=== PATIENT | male | born 1950 | race Caucasian/White ===

== ENCOUNTER 2017-07-27 12:41 | Emergency (ER) | payer MEDICARE, OTHER ==
[2017-07-27 12:51] VITALS: BP 158/66
[2017-07-27] MEDS ORDERED: ASPirin 81 mg TAB PO ONE (13:00)
[2017-07-27] MEDS ORDERED: predniSONE 20 MG TAB PO ONE (13:00)
[2017-07-27 13:49] LABS: Basophils # (auto) 0.1 uL; Basophils % (auto) 1.1 % (0.0-2.0); Eosinophils # (auto) 0.5 uL; Eosinophils % (auto) 4.5 % (0.0-7.0); Hematocrit 40.5 % (41.0-53.0); Hemoglobin 13.6 g/dL (13.5-17.5); Lymphocytes % (auto) 19.1 % (10.0-50.0); Mean Corpuscular Hemoglobin 29.4 pg (28.0-32.0); Mean Corpuscular Hgb Conc. 33.6 g/dL (32.0-36.0); Mean Corpuscular Volume 87.6 fL (80.0-100.0); Neutrophils # (auto) 6.7 uL; Neutrophils % (auto) 65.3 % (37.0-80.0); Platelet Count (auto) 355 10^3/uL (140-450); Red Blood Cells 4.63 10^6/uL (4.5-5.90); Red Cell Distribution Width 13.7 % (11.8-14.3); White Blood Cell 10.3 10^3/uL (4.4-10.8)
[2017-07-27 14:16] LABS: Alanine Aminotransferase 17 U/L (16-61); Albumin 3.7 g/dL (3.4-5.0); Alkaline Phosphatase 75 U/L (45-117); Anion Gap 10 (5-15); Aspartate Aminotransferase 11 U/L (15-37); BUN/Creatinine Ratio 17.3; Bilirubin, Total 0.4 mg/dL (0.2-1.0); Blood Urea Nitrogen 19 mg/dL (7-18); Calcium 8.9 mg/dL (8.5-10.1); Carbon Dioxide 22 mmol/L (21-32); Chloride 104 mmol/L (98-107); GFR African American 86 mL/min; GFR Non-African American 71 mL/min; Glucose 110 mg/dL (74-106); Potassium 4.4 mmol/L (3.5-5.1); Sodium 136 mmol/L (136-145); Total Protein 8.2 g/dL (6.4-8.2)
[2017-07-27] MEDS ORDERED: predniSONE 20 MG TAB ONE (14:42)
== END 2017-07-27 14:59 | disposition home or self-care (01) ==
LOC: ER 12:41
DX: G51.0 Bell's palsy (principal); J44.9 Chronic obstructive pulmonary disease, unspecified; E11.9 Type 2 diabetes mellitus without complications; I10 Essential (primary) hypertension; F17.210 Nicotine dependence, cigarettes, uncomplicated; Z90.49 Acquired absence of other specified parts of digestive tract
CPT/HCPCS: 36415; 70450; 80053; 84484; 85025; 93005; 99285; J7512; 71046

== ENCOUNTER 2018-10-15 13:00 | Inpatient (IN) | payer OTHER ==
[~2018-10-15] VITALS: Ht 193 cm; Wt 149.3 kg
[2018-10-15] MEDS ORDERED: FUROSEMIDE 40 MG/4 ML VIAL IV ONE (14:00)
[2018-10-15] MEDS ORDERED: ASPirin 81 mg TAB PO ONE (14:00)
[2018-10-15 14:34] LABS: Basophils # (auto) 0.1 uL; Basophils % (auto) 0.5 % (0.0-2.0); Eosinophils # (auto) 0.1 uL; Eosinophils % (auto) 0.7 % (0.0-7.0); Hematocrit 35.1 % (41.0-53.0); Hemoglobin 11.7 g/dL (13.5-17.5); Lymphocytes # (auto) 1.3 uL; Mean Corpuscular Hemoglobin 28.2 pg (28.0-32.0); Mean Corpuscular Hgb Conc. 33.3 g/dL (32.0-36.0); Mean Corpuscular Volume 84.6 fL (80.0-100.0); Monocytes # (auto) 1.8 uL; Monocytes % (auto) 14.1 % (0.0-12.0); Neutrophils # (auto) 9.8 uL; Neutrophils % (auto) 74.7 % (37.0-80.0); Platelet Count (auto) 345 10^3/uL (140-450); Red Blood Cells 4.15 10^6/uL (4.5-5.90); Red Cell Distribution Width 14.2 % (11.8-14.3); White Blood Cell 13.1 10^3/uL (4.4-10.8)
[2018-10-15 14:53] LABS: INR 1.12 (0.9-1.15); Partial Thromboplastin Time 37.2 sec (23.64-32.05)
[2018-10-15 14:55] LABS: Albumin 3.2 g/dL (3.4-5.0); Anion Gap 13 (5-15); BUN/Creatinine Ratio 13.3; Blood Urea Nitrogen 15 mg/dL (7-18); Carbon Dioxide 23 mmol/L (21-32); Chloride 100 mmol/L (98-107); GFR African American 83 mL/min; GFR Non-African American 69 mL/min; Glucose 127 mg/dL (74-106); Potassium 3.1 mmol/L (3.5-5.1); Sodium 136 mmol/L (136-145)
[2018-10-15 14:58] LABS: Alanine Aminotransferase 13 U/L (16-61); Alkaline Phosphatase 71 U/L (45-117); Aspartate Aminotransferase 7 U/L (15-37); Bilirubin, Total 0.7 mg/dL (0.2-1.0); Total Protein 7.6 g/dL (6.4-8.2)
[2018-10-15 15:02] LABS: Calcium 5.7 mg/dL (8.5-10.1)
[2018-10-15] MEDS ORDERED: CALCIUM GLUC 4.65meq/50ml D5AE 50 ML IV ONE (15:45)
[2018-10-15] MEDS ORDERED: POTASSIUM EFFERVESENT TAB 25 MEQ PO ONE (15:45)
[2018-10-15] MEDS ORDERED: ONDANSETRON HCL 4 MG/2 ML VIAL IV PRN (16:30)
[2018-10-15] MEDS ORDERED: MORPHINE SULF INJ 2 MG/ML SYRINGE 1ML IV PRN (16:30)
[2018-10-15] MEDS ORDERED: NITROGLYCERIN 0.4 MG SL TAB SL PRN (16:30)
[2018-10-15] MEDS: DOXYCYCLINE 100MG/250ML 250 ML IV SCH (17:42)
[2018-10-15] MEDS: FUROSEMIDE 40 MG/4 ML VIAL IV SCH (17:42)
[2018-10-15 18:39] LABS: Urine Bacteria NONE SEEN /hpf (None Seen); Urine Blood Negative /uL (Negative); Urine Specific Gravity 1.004 (1.001-1.035); Urine WBC <1 /hpf (0 - 3)
[2018-10-15 21:35] VITALS: BP 97/63
--- NOTE | 2018-10-15 21:40 | NUR ---
Telemetry admit from ER MELISSA BISWASANAYELI admitted to Telemetry unit. Did not receive report from er nurse. Patient oriented to Ted singh RN, [facility], 297 room, B bed, and unit policies regarding patient care and visiting hours. Patient now on continuous telemetry monitoring, tele box # 24 and telemetry reading on arrival to unit is afib. Patient placed on bedside oxygen, weighed by bedscale and encouraged to call if they need something. All questions and concerns addressed, patient verbalized understanding.
--- NOTE | 2018-10-15 21:46 | NUR ---
PAGEAmmon SO/HASHER OPERATOR. TO NOTIFY OF PATIENT NOT HAVING DIET ORDER, AND REQUESTING PAIN MEDICATION. AWAITING CALL BACK.
--- NOTE | 2018-10-15 21:53 | NUR ---
LALO FENG. AWAITING CALL BACK.
--- NOTE | 2018-10-15 22:08 | NUR ---
Spoke to Frances FENG senior talent management consultant and notified him of patient requesting pain medication, diet order, sleep aid, patient is afib on monitor-confirmed with ekg from ER-career guidance technician confirmed on monitor, patient has no history of afib as verbally stated by son and patint. Frances provided new orders of: metoprolol tartrate 12.5 mg po bid, tylenol 650 mg po q6 mild pain prn, norco 5/325 mg po q6 moderate pain prn, soft cardiac diet, cardio consult with dr purvis for afib, 2d echo (which order is already on file). All orders read back and verbally confirmed with MD Daniels. Will carry out.
[2018-10-15] MEDS ORDERED: OME20T PO (22:11)
[2018-10-15] MEDS ORDERED: HYDR50TA15 PO (22:12)
[2018-10-15] MEDS ORDERED: ATOR20TA PO (22:12)
[2018-10-15] MEDS ORDERED: METF-370 PO (22:12)
[2018-10-15] MEDS ORDERED: AMLO10TA13 PO (22:12)
[2018-10-15] MEDS ORDERED: NAP500T PO (22:12)
[2018-10-15] MEDS ORDERED: TRIATAB3 PO (22:12)
[2018-10-15] MEDS ORDERED: GEMF600T7 PO (22:12)
[2018-10-15] MEDS ORDERED: CARV25TA55 PO (22:12)
[2018-10-15] MEDS ORDERED: ACETAMINOPHEN 325 MG TAB PO PRN (22:15)
[2018-10-15 22:21] VITALS: BP 97/63
--- NOTE | 2018-10-15 22:45 | NUR ---
Patient signed smoking AMA. Patient, and son was educated on smoking AMA. Patient confirmed AMA paperwork and signed it. patient is down stairs smoking. Son advised me that patient will come back shortly.
[2018-10-15] MEDS ORDERED: METOPROLOL TARTRATE 25 MG TAB PO ONE (23:00)
--- NOTE | 2018-10-15 23:20 | NUR ---
Patient back in room resting comfortably in bed from smoking with son.
[2018-10-15] MEDS: HYDROcodone-ACET 5/325MG TAB PO PRN (23:21)
[2018-10-16] VITALS (7 sets, daily range): BP systolic 95–153; BP diastolic 47–78
[2018-10-16] MEDS: DOXYCYCLINE 100MG/250ML 250 ML IV SCH ×2 (04:47→16:56)
[2018-10-16] MEDS: FUROSEMIDE 40 MG/4 ML VIAL IV SCH (05:22)
--- NOTE | 2018-10-16 08:00 | NUR ---
Morning note patient resting in bed with even and unlabored respirations, no distress noted. Eyes closed. fall precautions in place with call light within reach. Will continue to monitor q1hr & PRN.
[2018-10-16] MEDS ORDERED: ADENOSINE 125 MG in GIVE UN-DILUTED 0 ML IV STA (08:36)
[2018-10-16] MEDS ORDERED: LORazepam 2MG/ML-1ML VIAL IV PRN (09:00)
[2018-10-16] MEDS ORDERED: METOPROLOL TARTRATE 25 MG TAB PO SCH (10:00)
[2018-10-16] MEDS: HYDROcodone-ACET 5/325MG TAB PO PRN (11:00)
--- NOTE | 2018-10-16 11:26 | NUR ---
IV initiated 20g IV started to the LFA with clean technique on the second attempt. IV secured. IV education provided to the patient. Patient verbalized understanding. Bed returned to lowest locked position with x2 side rails up and call light within reach. Visitor at bedside.
--- NOTE | 2018-10-16 11:59 | NUR ---
Patient off unit for stress test
[2018-10-16 12:59] LABS: Urine Bacteria NONE SEEN /hpf (None Seen); Urine Blood Negative /uL (Negative); Urine Specific Gravity 1.006 (1.001-1.035); Urine WBC <1 /hpf (0 - 3)
--- NOTE | 2018-10-16 14:03 | NUR ---
assessment Per Tiki Mejía [facility] ph:[phone] fx: [phone] has accepted and service to start 24-48 hrs. Needing auth from [employer]. Pt agrees to discharge plan. Addendum: 10/17/18 at 1704 by Laura NOLAND Amended: Links added.
--- NOTE | 2018-10-16 15:01 | NUR ---
was at bedside - Dr. Lucas Patient to be seen by Dr. Reyes then discharged.
--- NOTE | 2018-10-16 17:20 | NUR ---
Discharge Discharge education and paperwork given to patient per MD's order. Patient verbalized understanding. Education provided but not limited to bleeding precautions. Patient verbalized understanding. Patient's son and daughter at bedside. IV removed with clean technique, catheter intact. Pressure held. Dressing applied. Patient tolerated well. No bleeding noted. No trauma to site. Telemonitor removed and returned. Patient collected all personal belongings. Respirations even and unlabored, no distress noted. Patient taken to private vehicle by staff member via wheelchair with patient's son at patient's side. Patient transferred into personal vehicle with no complications.
--- NOTE | 2018-10-18 09:12 | NUR ---
CHOICE authorization number for [employer] is [id number] sent this authorization directly to [employer].
== END 2018-10-16 17:19 | disposition home health service (06) | DRG 291 ==
LOC: ER 13:07 → TELE 13:08 → TELE-WESTW 18:13
PROVIDERS: ADMIT Internal Medicine; ATTEND Internal Medicine
DX: I11.0 Hypertensive heart disease with heart failure (principal); N17.0 Acute kidney failure with tubular necrosis; Z68.41 Body mass index [BMI] 40.0-44.9, adult; I50.43 Acute on chronic combined systolic (congestive) and diastolic (congestive) heart failure; J44.9 Chronic obstructive pulmonary disease, unspecified; E83.51 Hypocalcemia; J32.0 Chronic maxillary sinusitis; I48.0 Paroxysmal atrial fibrillation; E66.01 Morbid (severe) obesity due to excess calories; F17.210 Nicotine dependence, cigarettes, uncomplicated; F12.90 Cannabis use, unspecified, uncomplicated; M43.12 Spondylolisthesis, cervical region; E11.42 Type 2 diabetes mellitus with diabetic polyneuropathy; G89.29 Other chronic pain; M47.812 Spondylosis without myelopathy or radiculopathy, cervical region; Z88.6 Allergy status to analgesic agent; Z90.49 Acquired absence of other specified parts of digestive tract; Z90.89 Acquired absence of other organs; Z79.84 Long term (current) use of oral hypoglycemic drugs; Z71.6 Tobacco abuse counseling; Z79.899 Other long term (current) drug therapy
CPT/HCPCS: 36415; 70450; 71045; 72125; 78452; 80053; 81001; 82310; 82570; 83605; 83880; 84156; 84300; 84443; 84484; 85025; 85610; 85730; 87040; 93005; 93017; 93306; 96365; 96375; G0378; J0153; J0610; J2405; J3490